=== PATIENT | male | born 1990 | race Caucasian/White ===

== ENCOUNTER → 2021-11-01 15:38 | Outpatient (CLI) | payer OTHER, SELFPAY ==
--- NOTE | ~2021-11-01 | MR_ITS ---
EXAMINATION: MR knee LT wo con DATE: 11/01/2021 16:31 INDICATION: Chronic left knee pain. Left knee swelling. TECHNIQUE: Magnetic resonance imaging (MRI) of the left knee was performed without intravenous contra st. Sequences included axial PD-weighted FS FSE, coronal PD-weighted FSE and PD-weighted FS FSE, sagi ttal PD-weighted FSE, and sagittal T2-weighted FS FSE. COMPARISON: None. FINDINGS: Medial compartment: There is an upper surface horizontal tear of posterior horn of medial meniscus. There is cartilage aguilar rface irregularity of tibial condyle. There is shallow partial-thickness cartilage loss of femoral co ndyle, worst at the central articular surface. Lateral compartment: Lateral meniscus is normal. Lateral compartment cartilage is normal. There is a subchondral fracture of lateral femoral condyle involving the central articular surface with low signal fracture line and surrounding edema-like marrow signal intensity. There is edema-like marrow signal intensity in manager data olateral aspect of tibial condyle, consistent with contusion. Patellofemoral compartment: Patellar cartilage is normal. Trochlear cartilage is normal. Ligaments and tendons: There is a complete tear of anterior cruciate ligament. Posterior cruciate ligament is intact. There is edema around medial collateral ligament, consistent with mild sprain (grade 1). Fibular collateral ligament demonstrates thickening and increased signal intensity proximally with surrounding edema, c onsistent with sprain (grade 2). There is mild patellar tendinopathy. Fluid: There is a large knee joint effusion. There is mild prepatellar and superficial infrapatellar bursiti s. IMPRESSION: 1. Complete tear of anterior cruciate ligament. 2. Tear of medial meniscus. 3. Mild chondrosis of medial compartment. 4. Subchondral fracture of lateral femoral condyle and kissing contusion of posterolateral aspect of lateral tibial condyle. 5. Large knee joint effusion. 6. Grade 1 sprain of medial collateral ligament. Grade 2 sprain of fibular collateral ligament. Reviewed, dictated and finalized at location A. IMPRESSION: 1. Complete tear of anterior cruciate ligament. 2. Tear of medial meniscus. 3. Mild chondrosis of medial compartment. 4. Subchondral fracture of lateral femoral condyle and kissing contusion of pos terolateral aspect of lateral tibial condyle. 5. Large knee joint effusion. 6. Grade 1 sprain of medial collateral ligament. Grade 2 sprain of fibular iglesia ateral ligament.
== END ==
PROVIDERS: PCP Orthopaedic Surgery; Visit Provider Orthopaedic Surgery
DX: M25.562 Pain in left knee (principal); G89.29 Other chronic pain; S83.512A Sprain of anterior cruciate ligament of left knee, initial encounter; S83.207A Unspecified tear of unspecified meniscus, current injury, left knee, initial encounter; M22.2X2 Patellofemoral disorders, left knee; S72.422A Displaced fracture of lateral condyle of left femur, initial encounter for closed fracture; M25.462 Effusion, left knee; S83.412A Sprain of medial collateral ligament of left knee, initial encounter
CPT/HCPCS: 73721

== ENCOUNTER 2024-05-09 12:29 | Emergency (ER) | payer OTHER, SELFPAY ==
--- NOTE | ~2024-05-09 | XR_ITS ---
EXAMINATION: XR hand RT min 3V DATE: 05/09/2024 12:58 INDICATION: Right hand pain. Fall one week ago. TECHNIQUE: 3 views of right hand were obtained. COMPARISON: Right wrist radiographs 11/03/2006 FINDINGS: Bone alignment is normal. No fracture. Joint spaces are normal. IMPRESSION: 1. Normal right hand. Reviewed, dictated and finalized at location A. KEEPER IMPRESSION: 1. Normal right hand.
[2024-05-09 12:44] VITALS: BP 133/72; PULSE 67; RESP 16; TEMP 36.2; O2SAT 98
--- NOTE | 2024-05-09 13:06 | ED_ITS ---
HPI - Extremity Injury (Upper) General Chief Complaint: Extremity Injury, Upper Stated Complaint: right hand injury Time Seen by Provider: 05/09/24 13:00 Source: patient, RN notes reviewed and old records reviewed Mode of arrival: ambulatory Limitations: no limitations History of Present Illness HPI narrative: Patient presents with complaints of right hand pain after falling onto outstretched hand about 7-10 days ago. He has no obvious deformity, retains full range of motion. He reports pain is primarily at the base of the thumb. He has not consistently been taking any medication for his symptoms, does report that he takes ibuprofen occasionally with some relief. He denies other injury and trauma. He voices no other concerns or complaints at this time. Related Data Home Medications Medication Instructions Recorded Confirmed No Home Medications 05/09/24 05/09/24 Allergies Allergy/AdvReac Type Severity Reaction Status Date / Time No Known Allergies Allergy Unverified 05/09/24 12:50 Review of Systems Review of Systems: All systems reviewed & are unremarkable except as noted in HPI and below Constitutional: Constitutional: Reports no additional constitutional com plaints ENT: Reports system reviewed and no additional complaints, except as documented Cardiovascular: Cardiovascular: Reports no additional cardiovascular complaints Respiratory: Respiratory: Reports no additional respiratory complaints Gastrointestinal: Gastrointestinal: Reports no additional gastrointestinal complaints Musculoskeletal: Musculoskeletal: Reports no additional musculoskeletal complaints, Reports as per HPI and Reports other (Right hand pain) PMFSH Comments At the time of my signature, I reviewed and agree with the nursing past medical, surgical, social, and family history. There is no relevant family history pertinent to the patient complaint. Exam Const: General: cooperative, no acute distress, alert and awake Orientation/consciousness: oriented to person, oriented to place and oriented to time HENMT: Head: normal to inspection Resp: Effort & Inspection: normal respiratory effort and able to speak in complete sentences Auscultation: clear to auscultation bilaterally, no crackles, no rales, no rhonchi and no wheezes Cardio: Palpation: normal PMI Rate: regular rate Rhythm: regular rhythm Heart sounds: S1 normal heart sound present and S2 normal heart sound present Neuro: General: oriented to person, oriented to place and oriented to time Cranial nerves: Yes CN's II-XII intact bilaterally Extrem: Right upper extremity: Extremity exam: right hand normal to inspection and normal capillary refill Hand/finger images: 1. tenderness Psych: Appearance: grossly normal Thought process: Normal thought process present Insight: Good insight present (Psych) Judgement: Good judgement present (Psych) Course Course Level of Care: Express Care Visit Vital Signs Vital signs: Vital Signs Temperature 97.2 F L 05/09/24 12:44 Pulse Rate 67 05/09/24 12:44 Respiratory Rate 16 05/09/24 12:44 Blood Pressure 133/72 05/09/24 12:44 Pulse Oximetry 98 05/09/24 12:44 Oxygen Delivery Room Air 05/09/24 12:44 Temperature 97.2 F L 05/09/24 12:44 Pulse Rate 67 05/09/24 12:44 Respiratory Rate 16 05/09/24 12:44 Blood Pressure 133/72 05/09/24 12:44 Pulse Oximetry 98 05/09/24 12:44 Oxygen Delivery Room Air 05/09/24 12:44 Reviewed MDM - Extremity Injury (Upper) MDM Narrative Medical decision making narrative: Patient with no obvious deformity, negative x-ray. Supportive care measures discussed to treat the right hand pain. Discharge instructions reviewed with patient, as well as provided in writing per nursing staff. The instructions also include specific and strict return/GO TO THE ER as well as f/u information. All questions have been answered, and the patient deny any further questions with discharge and discharge plan. Some parts of this dictation were generated by voice recognition software and may contain typographical and/or grammatical inaccuracies. Differential Diagnosis Differential diagnosis: Likely fracture of wrist and fracture of hand Medical Records Attestation: I reviewed the patient's medical records. Imaging Data Attestation: I personally reviewed and interpreted this imaging study as follows: My impression: negative Radiologist's impression: Patient: Ernesto Penaloza : 1990 MR#: [id number] Age: 33 Acct:[id number] Loc: [facility] ADM Date: 05/09/24Attending Dr: Ordering Physician: Nicole Pruett FNP Date of Service: 05/09/24 Procedure(s): XR hand RT min 3V Accession Number(s): [id number] cc: Nicole Pruett FNP; PNEUDRAULIC SYSTEMS MECHANIC PHYSICIAN~ EXAMINATION: XR hand RT min 3V DATE: 05/09/2024 12:58 INDICATION: Right hand pain. Fall one week ago. TECHNIQUE: 3 views of right hand were obtained. COMPARISON: Right wrist radiographs 11/03/2006 FINDINGS: Bone alignment is normal. No fracture. Joint spaces are normal. IMPRESSION: 1. Normal right hand. Reviewed, dictated and finalized at location A. ELHEAD INSPECTOR Dictated By: Gilberto Yu MD 05/09/24 1301 Signed By: <Electronically signed by Gilberto Yu MD in [place]> Discharge Plan Discharge Clinical Impression: Hand pain Qualifiers: Laterality: right Qualified Code(s): M79.641 - Pain in right hand Patient Disposition: Home, Self-Care Condition: Stable Instructions: Antibiotic Form, P.R.I.C.E. Treatment (ED) Additional Instructions: Ibuprofen per package instructions as needed for pain. Follow with primary care provider. Emergency department for new or worse symptoms Prescriptions: No Action No Home Medications Follow-up/Referrals: PHYSICIAN,PNEUDRAULIC SYSTEMS MECHANIC [Primary Care Provider] - 2 Weeks Time of Disposition: 13:13
== END 2024-05-09 13:17 | disposition home or self-care (01) ==
PROVIDERS: Emergency Provider Nurse Practitioner Family
DX: M79.641 Pain in right hand (principal)
CPT/HCPCS: 73130; 99213; G0463